=== PATIENT | female | born 1975 | race Caucasian/White ===

== ENCOUNTER → 2016-10-18 | Outpatient (CLI) | payer BC ==
--- NOTE | 2016-10-18 08:50 | DIAGNOSTIC IMAGING REPORT ---
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 FINDINGS: Patient initiated swallow function well. There is no evidence for aspiration or neuromuscular dysfunction. Esophagus is normal in course and caliber. Gastric esophageal junction is unremarkable. IMPRESSION: Normal study Electronically signed by: Juan Jacobson M.D. 10/18/2016 8:48 AM Dictated Date/Time: 10/18/2016 8:47 AM
== END | disposition home or self-care (01) ==
LOC: C.RAD 08:14
DX: F45.8 Other somatoform disorders (principal); R13.10 Dysphagia, unspecified